=== PATIENT | female | born 1980 | race Caucasian/White ===

== ENCOUNTER 2017-09-13 17:06 | Inpatient (IN) | payer BC, OTHER ==
[2017-09-13] VITALS (22 sets, daily range): BP systolic 92–140; BP diastolic 48–102; PULSE 66–100; RESP 16–18; TEMP 98.3–98.6
[~2017-09-13] VITALS: Ht 175.3 cm; Wt 88.0 kg
[~2017-09-13 17:06] MED LIST: DIPHTH/TETANUS/ACEL PERTUSSIS (BOOSTER) 0.5 ML VIAL/PFS IM ONE; MEASLES, MUMPS, RUBELLA VACCINE 0.5 ML VIAL SQ ONE
--- NOTE | 2017-09-13 17:56 | HHI.HP ---
HPI Chief Complaint Contraction pain Date Seen: Sep 13, 2017 Time Seen: 17:50 Travel History International Travel<30 Days: No Contact w/Intl Traveler<30Days: No Known Affected Area: No History of Present Illness HPI Patient is 37-year-old white female at 39 weeks presents in labor. heart rate tracing is reactive she is brandi every 2-[address] Gupta for care. Weeks Gestation: 39 Para: 1 : 5 History Obstetric History Obstetric History One vaginal delivery of 3 early losses Family History Family History: Negative Social History Alcohol Use: No Tobacco Use: No Substance Abuse: No Allergies-Medications (Allergen,Severity, Reaction): Coded Allergies: No Known Allergies (Unverified , 03/29/16) Home Meds No Active Prescriptions or Reported Meds Review of Systems General / Constitutional: No: Fever, Weight Gain, Chills, Other Eyes: No: Diploplia, Blurred Vision, Visual changes, Pain, Photophobia HENT: No: Headaches, Vertigo, Lightheadedness Cardiovascular: No: Irregular Rhythm, Chest Pain or Discomfort, Palpitations, Tachycardia, Syncope, Varicosities, Edema, Cyanosis Respiratory: No: Cough, Short of Breath, Other Gastrointestinal: Abdominal Pain, No: Nausea, Vomiting, Diarrhea Genitourinary: No: Decreased Urinary Output, Oliguria Musculoskeletal: No: Limited ROM, Weakness, Cramping, Edema, Pain Skin: No Rash, No Itching, No Dryness, No Lumps, No Change in Pigmentation, No Change in Nails, No Alopecia, No Lesions Neurologic: No: Weakness, Dizziness, Syncope, Focal Abnormalities, Coordination Problem, Headache, Slurred Speech, Seizures Psychiatric: No: Depression, Suicidal Ideations, Homicidal Ideation Endocrine: No: Heat Intolerance, Cold Intolerance, Polydipsia, Polyuria, Other Physical Exam Narrative GENERAL: Well-nourished, well-developed patient. SKIN: Warm and dry. HEAD: Normocephalic and atraumatic. EYES: No scleral icterus. No injection or drainage. ENT: No nasal drainage noted. Mucous membranes pink. Airway patent. NECK: Supple, trachea midline. No JVD. CARDIOVASCULAR: Regular rate and rhythm without murmurs, gallops, or rubs. RESPIRATORY: Breath sounds equal bilaterally. No accessory muscle use. BREASTS: Bilateral exam showed no masses , no retractions, no nipple discharge. ABDOMEN/GI: Abdomen soft, non-tender, bowel sounds present, no rebound, no guarding Gravid to [39-] weeks size Fundal Height: [-39] GENITOURINARY: External Genitalia: intact and normal in appearance BUS glands: [-] Cervix: [-]midposition Dilatation: [-5] Effacement: [-100] Station: [-1] Presentation: [vtx-] Membranes: [intact BBOW] Uterine Contractions: [q 3 min-] FHT's: Category: [1-] Baseline: [133-] Reactive: yes[-] Variability: [mod-] Decels: [0-] EXTREMITIES: No cyanosis or edema. BACK: Nontender without obvious deformity. No CVA tenderness. NEUROLOGICAL: Awake and alert. Motor and sensory grossly within normal limits. Five out of 5 muscle strength in all muscle groups. Normal speech. Caprini VTE Risk Assessment Caprini VTE Risk Assessment: No/Low Risk (score <= 1) Caprini Risk Assessment Model Point Value = 1 Point Value = 2 Point Value = 3 Point Value = 5 Age 41-60 Minor surgery BMI > 25 kg/m2 Swollen legs Varicose veins or History of unexplained or recurrent spontaneous Oral contraceptives or hormone replacement Sepsis (< 1 month) Serious lung disease, including pneumonia (< 1 month) Abnormal pulmonary function Acute myocardial infarction Congestive heart failure (< 1 month) History of inflammatory bowel disease Medical patient at bed rest Age 61-74 Arthroscopic surgery Major open surgery (> 45 min) Laparoscopic surgery (> 45 min) Malignancy Confined to bed (> 72 hours) Immobilizing plaster cast Central venous access Age >= 75 History of VTE Family history of VTE Factor V Leiden Prothrombin [id number] Lupus anticoagulant Anticardiolipin antibodies Elevated serum homocysteine Heparin-induced thrombocytopenia Other congenital or acquired thrombophilia Stroke (< 1 month) Elective arthroplasty Hip, pelvis, or leg fracture Acute spinal cord injury (< 1 month) Prophylaxis Regimen Total Risk Factor Score Risk Level Prophylaxis Regimen 0-1 Low Early ambulation 2 Moderate Order ONE of the following: *Sequential Compression Device (SCD) *Heparin 5000 units SQ BID 3-4 Higher Order ONE of the following medications: *Heparin 5000 units SQ TID *Enoxaparin/Lovenox 40 mg SQ daily (WT < 150 kg, CrCl > 30 mL/min) *Enoxaparin/Lovenox 30 mg SQ daily (WT < 150 kg, CrCl > 10-29 mL/min) *Enoxaparin/Lovenox 30 mg SQ BID (WT < 150 kg, CrCl > 30 mL/min) AND/OR *Sequential Compression Device (SCD) 5 or more Highest Order ONE of the following medications: *Heparin 5000 units SQ TID (Preferred with Epidurals) *Enoxaparin/Lovenox 40 mg SQ daily (WT < 150 kg, CrCl > 30 mL/min) *Enoxaparin/Lovenox 30 mg SQ daily (WT < 150 kg, CrCl > 10-29 mL/min) *Enoxaparin/Lovenox 30 mg SQ BID (WT < 150 kg, CrCl > 30 mL/min) AND *Sequential Compression Device (SCD) Data Data Orders Orders Ob (2e) Additional Admit Info (09/13/17 17:39) Admit To Inpatient (09/13/17 ) Vital Signs (Adult) .Per protocol (09/13/17 17:50) Heart (09/13/17 17:50) Amnioinfusion (09/13/17 17:50) Urinary Catheter Management .ONCE (09/13/17 17:50) Diet Liquid (09/13/17 Dinner) Lactated Ringer's 1000 Ml Inj (Lr 1000 M (09/13/17 17:50) Lactated Ringer's 1000 Ml Inj (Lr 1000 M (09/13/17 17:50) Sodium Chlorid 0.9% 500 Ml Inj (Ns 500 M (09/13/17 18:00) Sodium Chlor 0.9% 1000 Ml Inj (Ns 1000 M (09/13/17 18:10) Lidocaine 1% Inj (50 Ml) (Xylocaine 1% I (09/13/17 18:00) Citric Acid-Sodium Citrate Liq (Bicitra (09/13/17 18:00) Fentanyl Inj (Fentanyl Inj) (09/13/17 18:00) Fentanyl Inj (Fentanyl Inj) (09/13/17 18:00) Complete Blood Count With Diff (09/13/17 17:50) Hold Clot (09/13/17 17:50) Abo/Rh Blood Type (09/13/17 17:50) Urinalysis - C+S If Indicated (09/13/17 17:50) Drug Screen, Random Urine (09/13/17 17:50) Resp Oxygen Non Rebreathe Mask (09/13/17 ) ^ Epidural / Intrathecal Infus (09/13/17 17:50) Oxytocin 30 Units-500ml Premix (Pitocin (09/13/17 18:00) Lidocaine 1% Inj (50 Ml) (Xylocaine 1% I (09/13/17 18:00) Light Mineral Oil (Muri-Lube Oil) (09/13/17 18:00) Specimen To Be Collected PRN (09/13/17 17:50) Specimen To Be Collected PRN (09/13/17 17:50) Group B Strep: Negative Assessment/Plan Assessment and Plan Patient is 37-year-old white female A3 at 39 weeks who presents in labor. Cervix is 5/100%/-1/vertex, contractions regular patient's in obvious pain in labor. heart rate tracing is reactive and contractions are noted Impression-term intrauterine in active labor plan is admission for labor management and delivery Stan Allen II, MD Sep 13, 2017 17:56
[2017-09-13] MEDS ORDERED: SODIUM CHLORID 0.9% 500 ML INJ 500 ML IV PRN (18:00)
[2017-09-13] MEDS ORDERED: LIDOCAINE HCL 1% 50 ML VIAL I-DERMAL PRN (18:00)
[2017-09-13] MEDS ORDERED: MINERAL OIL 10 ML VIAL TOPICAL PRN (18:00)
[2017-09-13] MEDS ORDERED: LIDOCAINE HCL 1% 50 ML VIAL INFIL PRN (18:00)
[2017-09-13] MEDS ORDERED: CITRIC ACID-SODIUM CITRATE LIQ 30 ML UDC PO SCH (18:00)
[2017-09-13] MEDS ORDERED: OXYTOCIN 30 UNITS-500ML PREMIX 500 ML IV ONE (18:00)
[2017-09-13] MEDS ORDERED: LACTATED RINGER'S 1000 ML INJ 1,000 ML IV SCH (18:00)
[2017-09-13] MEDS ORDERED: LACTATED RINGER'S 1000 ML INJ 1,000 ML IV PRN (18:00)
[2017-09-13] MEDS ORDERED: SODIUM CHLOR 0.9% 1000 ML INJ 1,000 ML IV PRN (18:10)
[2017-09-13 18:24] LABS: AUTOMATED NEUTROPHIL # 9.1 TH/MM3 (1.8-7.7); BASOPHIL # 0.1 TH/MM3 (0-0.2); BASOPHIL % 0.7 % (0.0-2.0); EOSINOPHIL # 0.1 TH/MM3 (0-0.4); EOSINOPHIL % 0.7 % (0.0-4.0); HEMATOCRIT 35.6 % (35.0-46.0); HEMO FLAGS DIFF FINAL; LYMPH % 16.6 % (9.0-44.0); MEAN CELL VOLUME 87.4 FL (80.0-100.0); MEAN CORPUSCULAR HEMOGLOBIN 30.7 PG (27.0-34.0); MEAN CORPUSCULAR HGB CONC 35.2 % (32.0-36.0); MONO % 6.7 % (0.0-8.0); NEUT % 75.3 % (16.0-70.0); PLATELET COUNT 200 TH/MM3 (150-450); RED BLOOD COUNT 4.07 MIL/MM3 (4.00-5.30); RED CELL DISTRIBUTION WIDTH 13.3 % (11.6-17.2); WHITE BLOOD COUNT 12.1 TH/MM3 (4.0-11.0)
[2017-09-13 18:32] LABS: BLOOD, URINE NEG (NEG); COMMENT (UR) CULT NOT INDICATED; CULTURE IF INDICATED CULT NOT INDICATED; GLUCOSE,URINE NEG (NEG); KETONE, URINE NEG (NEG); MUCUS URINE FEW /lpf (OCC); NITRITE,URINE NEG (NEG); PH, URINE 7.5 (5.0-8.5); SQUAMOUS EPITHELIAL CELL URINE 1 /hpf (0-5); URINE COLOR YELLOW (YELLW/STRAW)
[2017-09-13] MEDS ORDERED: fentaNYL 2MCG-BUPIV 0.125% INJ 100 ML ONE (18:54)
[2017-09-13] MEDS ORDERED: IBUP-232 PO (20:10)
--- NOTE | 2017-09-13 20:10 | PD.OB.DELI ---
Weeks gestation: 39 Gest age assessed date: Sep 13, 2017 Gest age assessed time: 17:19 Pt started active labor?: Yes Medical induction of labor?: No Artificial rupture of membrane: Yes Artificial ROM date: Sep 13, 2017 Artifical ROM time: 19:20 Anesthesia: Epidural Episiotomy: None Vaginal Delivery: Normal, Spontaneous Presentation: Occiput anterior Nuchal Cord: x1 (reduced at perineum) Delayed cord clamping (45 sec): Yes : Female Delivery date: Sep 13, 2017 Delivery time: 19:44 One Minute : 9 Five Minute : 9 Weight: 3390g (7#8oz) Placenta: Spontaneous delivery, Intact, 3 vessel cord Laceration: Perineal laceration, 2 deg Repair: Chromic running Estimated blood loss: 200 mL Additional Information healthy infant female delivered without complication Aishwarya Woodward MD Sep 13, 2017 20:10
--- NOTE | 2017-09-13 20:11 | HHI.DCPOC ---
Discharge Care Plan Diagnosis: (1) (normal spontaneous vaginal delivery) Your Health Problems Are: Vaginal delivery Report Symptoms to Your Doctor -Temperature above 100.5 degrees -Redness, of incision or excessive or foul smelling drainage -Unusual pain or calf pain -Increased vaginal bleeding -Painful or difficulty urinating -Feelings of extreme sadness or anxiety after 2 weeks Goals to Promote Your Health * To prevent worsening of your condition and complications * To maintain your health at the optimal level Directions to Meet Your Goals Take your medications as prescribed Follow your dietary instruction Follow activity as directed Ensure plenty of rest for recovery Drink fluids for hydration Keep your appointments as scheduled Take your immunizations and boosters as scheduled If your symptoms worsen call your PCP, if no PCP go to Urgent Care Center or Emergency Room Smoking is Dangerous to Your Health. Avoid second hand smoke Call the 24-hour crisis hotline for domestic abuse at Aishwarya Woodward MD Sep 13, 2017 20:11
[2017-09-13] MEDS ORDERED: ONDANSETRON ODT 4 MG TAB PO PRN (20:15)
[2017-09-13] MEDS ORDERED: WITCH HAZEL 50%/GLYCERIN 12.5% 40 PAD JAR TOPICAL PRN (20:15)
[2017-09-13] MEDS ORDERED: ZOLPIDEM TARTRATE 5 MG TAB PO PRN (20:15)
[2017-09-13] MEDS ORDERED: ACETAMINOPHEN 325 MG TAB PO PRN (20:15)
[2017-09-13] MEDS ORDERED: DOCUSATE SODIUM 50 MG/SENNA 8.6 MG TAB PO PRN (20:15)
[2017-09-13] MEDS ORDERED: oxyCODONE/ACETAMINOPHEN 5 MG/325 MG TAB PO PRN ×2 (20:15)
[2017-09-13] MEDS ORDERED: ALUMINUM/MAGNESIUM/SIMETH 30 ML CUP PO PRN (20:15)
[2017-09-13] MEDS ORDERED: SODIUM CHLORIDE 0.9% FLUSH 10 ML FLUSH IV FLUSH PRN (20:15)
[2017-09-13] MEDS ORDERED: OXYTOCIN 30 UNITS-500ML PREMIX 500 ML IV SCH (20:15)
[2017-09-13] MEDS ORDERED: BENZOCAINE 20% TOPICAL SPRAY 60 ML CAN TOPICAL PRN (20:15)
[2017-09-13] MEDS: ePHEDrine/NS 25 MG/5 ML SYR IV PUSH PRN ×2 (20:25→20:27)
[2017-09-13] MEDS ORDERED: fentaNYL 2MCG-BUPIV 0.125% 100 ML EPIDURAL SCH (20:30)
[2017-09-13] MEDS ORDERED: NO SYSTEM NARCOTICS PRN (20:30)
[2017-09-13] MEDS ORDERED: DO NOT ADMINISTER ANTICOAGULANTS PRN (20:30)
[2017-09-13] MEDS: SODIUM CHLORIDE 0.9% FLUSH 10 ML FLUSH IV FLUSH SCH (21:00)
--- NOTE | 2017-09-14 06:10 | HHI.OB ---
Subjective Post Day: 1 Remarks s/p FT healthy female Objective Vitals/I&O Vital Signs Date Time Temp Pulse Resp B/P (MAP) Pulse Ox O2 Delivery O2 Flow Rate FiO2 09/13/17 23:30 98.6 71 18 106/63 (77) 09/13/17 22:00 71 107/65 (79) 09/13/17 21:30 66 103/72 (82) 09/13/17 21:15 83 109/71 (84) 09/13/17 21:02 77 92/48 (63) 09/13/17 21:00 16 09/13/17 20:45 74 107/70 (82) 09/13/17 20:45 16 09/13/17 20:30 91 116/76 (89) 09/13/17 20:30 18 09/13/17 20:27 16 09/13/17 20:15 89 114/69 (84) 09/13/17 20:11 18 09/13/17 20:00 97 120/75 (90) 09/13/17 19:45 121/102 (108) 09/13/17 19:30 85 122/75 (91) 09/13/17 19:20 88 131/83 (99) 09/13/17 19:20 87 09/13/17 19:15 78 09/13/17 19:15 81 133/80 (97) 09/13/17 19:11 99 121/87 (98) 09/13/17 19:10 76 09/13/17 19:09 71 140/88 (105) 09/13/17 19:05 78 09/13/17 19:01 89 134/85 (101) 09/13/17 18:36 100 129/70 (89) 09/13/17 17:30 98.3 18 Objective Remarks GENERAL: Well-nourished, well-developed patient. CARDIOVASCULAR: Regular rate and rhythm without murmurs, gallops, or rubs. RESPIRATORY: Breath sounds equal bilaterally. No accessory muscle use. ABDOMEN/GI: Abdomen soft, non-tender. Fundus: Firm, non-tender at umbilicus. GENITOURINARY: Light bleeding. EXTREMITIES: No cyanosis or edema, non-tender, without signs of DVT. Medications and IVs Current Medications Medications (Trade) Dose Ordered Sig/Gustavo Route Start Time Stop Time Status Last Admin (NS Flush) 2 ml BID IV FLUSH 09/13/17 21:00 (NS Flush) 2 ml UNSCH PRN IV FLUSH 09/13/17 20:15 (Tylenol) 650 mg Q4H PRN PO 09/13/17 20:15 (Motrin) 800 mg Q8H PRN PO 09/13/17 20:15 (Percocet 5-325 Mg) 1 tab Q4H PRN PO 09/13/17 20:15 (Percocet 5-325 Mg) 2 tab Q4H PRN PO 09/13/17 20:15 (Americaine 20% Top Spr) 1 spray Q4H PRN TOPICAL 09/13/17 20:15 09/13/17 23:38 (Tucks Pads) 1 applic QID PRN TOPICAL 09/13/17 20:15 09/13/17 23:38 (Lissette-Colace) 2 tab Q12H PRN PO 09/13/17 20:15 (Ambien) 5 mg HS PRN PO 09/13/17 20:15 (Mag-Al Plus Susp Liq) 15 ml Q8H PRN PO 09/13/17 20:15 (Zofran Odt) 4 mg Q6H PRN PO 09/13/17 20:15 Assessment/Plan Problem List: (1) (normal spontaneous vaginal delivery) ICD Codes: O80 - (normal spontaneous vaginal delivery) Status: Acute Assessment and Plan PPD#1 37 yo s/p FT healthy female infant , doing well continue supportive care anticipate d/c to home 09/15/17 Discharge Planning routine Aishwarya Woodward MD Sep 14, 2017 06:10
[2017-09-14 08:00] VITALS: BP 106/71; PULSE 72; RESP 16; TEMP 98
[2017-09-14] MEDS: IBUPROFEN 800 MG TAB PO PRN ×2 (08:15→21:01)
[2017-09-14] MEDS: SODIUM CHLORIDE 0.9% FLUSH 10 ML FLUSH IV FLUSH SCH (19:52)
[2017-09-14 20:00] VITALS: BP 114/76; PULSE 68; RESP 18; TEMP 98
--- NOTE | 2017-09-15 06:46 | HHI.OB ---
Subjective Post Day: 3 Remarks doing well, ready for d/c home Objective Vitals/I&O Vital Signs Date Time Temp Pulse Resp B/P (MAP) Pulse Ox O2 Delivery O2 Flow Rate FiO2 09/14/17 20:00 98.0 68 18 114/76 (89) 09/14/17 08:00 98.0 72 16 106/71 (83) Objective Remarks GENERAL: Well-nourished, well-developed patient. CARDIOVASCULAR: Regular rate and rhythm without murmurs, gallops, or rubs. RESPIRATORY: Breath sounds equal bilaterally. No accessory muscle use. ABDOMEN/GI: Abdomen soft, non-tender. Fundus: Firm, non-tender at umbilicus. GENITOURINARY: Light bleeding. EXTREMITIES: No cyanosis or edema, non-tender, without signs of DVT. Medications and IVs Current Medications Medications (Trade) Dose Ordered Sig/Gustavo Route Start Time Stop Time Status Last Admin (NS Flush) 2 ml BID IV FLUSH 09/13/17 21:00 (NS Flush) 2 ml UNSCH PRN IV FLUSH 09/13/17 20:15 (Tylenol) 650 mg Q4H PRN PO 09/13/17 20:15 (Motrin) 800 mg Q8H PRN PO 09/13/17 20:15 09/14/17 21:01 (Percocet 5-325 Mg) 1 tab Q4H PRN PO 09/13/17 20:15 (Percocet 5-325 Mg) 2 tab Q4H PRN PO 09/13/17 20:15 (Americaine 20% Top Spr) 1 spray Q4H PRN TOPICAL 09/13/17 20:15 09/13/17 23:38 (Tucks Pads) 1 applic QID PRN TOPICAL 09/13/17 20:15 09/13/17 23:38 (Lissette-Colace) 2 tab Q12H PRN PO 09/13/17 20:15 09/14/17 08:15 (Ambien) 5 mg HS PRN PO 09/13/17 20:15 (Mag-Al Plus Susp Liq) 15 ml Q8H PRN PO 09/13/17 20:15 (Zofran Odt) 4 mg Q6H PRN PO 09/13/17 20:15 Assessment/Plan Problem List: (1) (normal spontaneous vaginal delivery) ICD Codes: O80 - (normal spontaneous vaginal delivery) Status: Acute Assessment and Plan PPD#3 37 yo s/p FT healthy female , doing well continue supportive care d/c to home today Discharge Planning routine Bernardo Lemus MD Sep 15, 2017 06:46
[2017-09-15 08:50] VITALS: BP 104/68; PULSE 57; RESP 18; TEMP 97.9; O2SAT 95
[2017-09-15] MEDS: SODIUM CHLORIDE 0.9% FLUSH 10 ML FLUSH IV FLUSH SCH (09:00)
== END 2017-09-15 13:28 | disposition home or self-care (01) | DRG 775 ==
LOC: HOBED 17:06 → H2EB 17:42 → H2EA 18:08 → H1EA 22:29
PROVIDERS: ADMIT Obstetrics & Gynecology; ATTEND Obstetrics & Gynecology
PROC: 10E0XZZ Delivery of Products of Conception, External Approach (ICD-10-PCS; principal; 2017-09-13)
PROC: 0KQM0ZZ Repair Perineum Muscle, Open Approach (ICD-10-PCS; 2017-09-13)
PROC: 00HU33Z Insertion of Infusion Device into Spinal Canal, Percutaneous Approach (ICD-10-PCS; 2017-09-13)
PROC: 3E0R3BZ Introduction of Anesthetic Agent into Spinal Canal, Percutaneous Approach (ICD-10-PCS; 2017-09-13)
DX: O70.1 Second degree perineal laceration during delivery (principal); Z37.0 Single live birth; O69.81X0 Labor and delivery complicated by cord around neck, without compression, not applicable or unspecified; Z3A.39 39 weeks gestation of pregnancy
CPT/HCPCS: 59025; 80307; 81001; 85025; 86900; 86901; 90715; 99285